=== PATIENT | male | born 1965 | race Caucasian/White ===

== ENCOUNTER 2021-12-13 10:57 | Emergency (ER) | payer OTHER, SELFPAY ==
--- NOTE | ~2021-12-13 | XR_ITS ---
EXAMINATION: XR finger 1st RT min 2V DATE: 12/13/2021 11:09 INDICATION: Right thumb laceration. TECHNIQUE: 3 views of right thumb were obtained. COMPARISON: Right hand radiographs 06/14/2006 FINDINGS: Bone alignment is normal. No fracture. There is moderate osteoarthritis of first carpometac arpal joint and mild osteoarthritis of first metacarpophalangeal joint and first interphalangeal join t. No radiopaque foreign body. IMPRESSION: 1. Polyarticular osteoarthritis. Reviewed, dictated and finalized at location A.
[2021-12-13 11:00] VITALS: BP 173/89; PULSE 79; RESP 20; O2SAT 94
--- NOTE | 2021-12-13 11:35 | ED.WOUNDLAC ---
HPI - Wound/Laceration General Chief Complaint: Wound/Laceration Stated Complaint: thumb lac Time Seen by Provider: 12/13/21 11:09 History of Present Illness HPI narrative: 56-year-old male presents the emergency room for evaluation of a laceration to the right thumb. Patient states that he was moving snowplow in his garage yesterday afternoon when he cut his thumb on the blade. Patient denies any difficulty moving his thumb around. Tetanus is not up-to-date. Related Data Allergies Allergy/AdvReac Type Severity Reaction Status Date / Time pollen extracts Allergy Unknown Unknown Verified 12/13/21 10:57 Review of Systems Review of Systems: CONSTITUTIONAL: Denies fever, chills, or sweats. EYES: Denies visual changes, redness, or discharge. ENT: Denies rhinorrhea, congestion, sore throat, or otalgia. CARDIOVASCULAR: Denies chest pain, palpitations, or edema. RESPIRATORY: Denies cough or dyspnea. GASTROINTESTINAL: Denies abdominal pain, nausea, vomiting, or diarrhea. GENITOURINARY: Denies dysuria or hematuria. SKIN: Laceration right thumb MUSCULOSKELETAL: Denies back pain, joint pain, or myalgia. NEUROLOGIC: Denies headache, numbness, dizziness, or weakness. PSYCHIATRIC: Denies anxiety or depression. [facility] Family History Family History Other Family history of lung cancer Family history of malignant neoplasm of brain Social History Social History Smoking status: Heavy tobacco smoker Alcohol intake: current Substance use: never Substance use type: does not use Gender identity (if verbalized by the patient): Female Exam Narrative: GENERAL: Well-appearing, well-nourished, and in no acute distress. HEAD: Normocephalic, atraumatic. EYES: PERRLA and EOMI. CHEST: Clear to auscultation. No respiratory distress. No wheezes rales or rhonchi HEART: Regular rate and rhythm. No murmur heard. Normal peripheral pulses. ABDOMEN: Soft, nontender, nondistended, normal active bowel sounds. EXTREMITIES: Normal range of motion. No edema. SKIN: Right thumb: 3 cm stellate shaped laceration to the palmar side of the right thumb; range of motion of the MCP and IP joints, no joint laxity, neurovascular is intact distally NEURO: No focal deficits. Alert and oriented x3. PSYCH: Normal mood and affect. Course Vital Signs Vital signs: Vital Signs Pulse Rate 79 12/13/21 11:00 Respiratory Rate 20 12/13/21 11:00 Blood Pressure 173/89 H 12/13/21 11:00 Pulse Oximetry 94 12/13/21 11:00 Pulse Rate 79 12/13/21 11:00 Respiratory Rate 20 12/13/21 11:00 Blood Pressure 173/89 H 12/13/21 11:00 Pulse Oximetry 94 12/13/21 11:00 Discharge Plan Discharge Clinical Impression: Laceration of right thumb Patient Disposition: Home, Self-Care Condition: Stable Instructions: Antibiotic Form, Laceration (ED) Prescriptions: New cephalexin 500 mg capsule 500 mg PO Q8H 7 Days Qty: 21 0RF No Action diclofenac sodium 75 mg tablet,delayed release (DR/EC) 75 mg PO BID PRN (Reason: pain) Qty: 60 0RF allopurinol 100 mg tablet 100 mg PO DAILY Qty: 30 2RF prednisone 10 mg tablet 30 mg PO DAILY Qty: 15 0RF benzonatate 100 mg capsule 100 mg PO TID PRN (Reason: cough) Qty: 30 0RF Follow-up/Referrals: Florentino Marquis MD [Primary Care Provider] - Time of Disposition: 11:38
[2021-12-13] MEDS: TETANUS,DIPHTHERIA,AC PERTUSSIS ADULT (0.5 ML) BOOSTRIX IM (11:43)
== END 2021-12-13 11:56 | disposition home or self-care (01) ==
PROVIDERS: Emergency Provider Nurse Practitioner Family; PCP Family Medicine
DX: S61.011A Laceration without foreign body of right thumb without damage to nail, initial encounter (principal); Z23 Encounter for immunization; F17.200 Nicotine dependence, unspecified, uncomplicated; M19.041 Primary osteoarthritis, right hand; W26.8XXA Contact with other sharp object(s), not elsewhere classified, initial encounter
CPT/HCPCS: 73140; 90471; 90715; 99283

== ENCOUNTER 2023-11-13 13:15 | Outpatient (RCR) | payer OTHER, SELFPAY ==
--- NOTE | 2023-10-29 15:26 | OPREHPOC ---
Outpatient Therapy Plan of Care This is a Multidisciplinary Plan of Care that may contain components documented by all disciplines (PT, OT, and ST.) PT Problem 1 PT Problem #1 Knowledge Deficit PT Goal 1 Goal *indep with HEP * good body positioning with exercises Target Visit 8 PT Problem 2 PT Problem #2 Pain PT Goal 1 Goal 1* worst pain rating of 4/10 2* radicular pain to knee at worst 3* self assessment Oswestry rating of 10% limitation Target Visit 8 PT Problem 3 PT Problem #3 Impaired Flexibility PT Goal 1 Goal increase hip and trunk flexibility to decrease muscle imbalance 1* supine SLR L 55' 2* supine SLR R 60' 3* supine L piriformis stretch without pain Target Visit 8 PT Problem 4 PT Problem #4 Impaired Strength PT Goal 1 Goal 1* single leg standing L x 20 sec with good stability 2* pt report no issues with L foot dragging with walking Target Visit 8
--- NOTE | 2023-10-29 15:26 | PTOPEVAL1 ---
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 Reported Pain Level Pain Score Self Report Additional Pain Score Comments pain range in the past week 4-8/10; constant into L LE, to foot at worse;L lateral hip; increase pain: walking/on feet 10 min; when wake up in AM; put on shoes, lie on L side; decrease pain: over counter pain patch; hot shower took gabapentin few times- not tell difference; no over the counter meds- do not like to take meds is not a good sleeper in general Assessment PT Clinical Summary Simone has the diagnosis of back pain, radicular into L LE to foot. He works walking through a plant delivering mail, and at times, his L foot drags. Self assessment Oswestry rating of 22% limitation in activity level. With the evaluation: standing trunk flexion and supine hamstring stretch increase pain; he has tightness of both hamstrings, L tighter than R; poor posture with rounding of shoulders and thoracic spine. Skilled PT services are indicated for modalities to decrease pain; therapeutic exercises to increase flexibility of hips and increase strength of trunk, with education for HEP and posture correction. Plan of Care Interventions Electrical Stimulation,Hot Pack/Cold Pack,Manual Therapy,Mechanical Traction,Neuro Re-education, Patient/Caregiver Education,Therapeutic Activities, Therapeutic Exercise,Ultrasound,Other Other Interventions IASTM, taping PT Services Indicated Yes Treatment Frequency and 2x/wk for 8 visit total Duration These treatments will address the objective and functional deficits as defined above. The patient will be advanced safely and appropriately in order for the david
--- NOTE | 2023-12-17 11:45 | PTOPDC ---
Assessment and note entered by Sarah Gustafson, PT Discharge Report Assessment Status Discharge - Pt Not Present Diagnosis low back pain Onset May 2023 Subjective Information pt was not seen this date. Assessment PT Clinical Summary Simone has received 3 PT sessions, from October 28 to November 12. He then stopped attending therapy. Discharge PT. The goals were not addressed. Plan of Care PT Services Indicated No
== END 2023-12-17 13:34 | disposition home or self-care (01) ==
LOC: ANHPT 13:15
PROVIDERS: PCP Family Medicine; Visit Provider Nurse Practitioner Family
DX: M54.32 Sciatica, left side (principal)
CPT/HCPCS: 97014; 97110; 97140; 97161; 97530; G0283

== ENCOUNTER 2023-11-23 10:28 | Outpatient (CLI) | payer OTHER, SELFPAY ==
--- NOTE | ~2023-11-23 | XR_ITS ---
EXAMINATION: XR lumbar spine 2-3V DATE: 11/23/2023 10:57 INDICATION: Left-sided sciatica. TECHNIQUE: 3 views of lumbar spine were obtained. COMPARISON: None. FINDINGS: There is 4 degrees levocurvature of thoracolumbar spine. There is 3 mm retrolisthesis of L2 on L3 and L3 on L4. Vertebral body heights are normal. There is mildly decreased disc height at L2-L 3 and L3-L4. There is multilevel facet joint osteoarthritis, severe in lower lumbar spine. IMPRESSION: 1. Mild lumbar spondylosis. Reviewed, dictated and finalized at location A. IMPRESSION: 1. Mild lumbar spondylosis.
== END 2023-11-23 10:29 ==
LOC: MICIMG 10:30
PROVIDERS: PCP Family Medicine; Visit Provider Nurse Practitioner Adult Health
DX: M54.42 Lumbago with sciatica, left side (principal); M43.06 Spondylolysis, lumbar region
CPT/HCPCS: 72100

== ENCOUNTER 2023-12-18 12:38 | Outpatient (CLI) | payer OTHER, SELFPAY ==
--- NOTE | 2023-12-18 14:15 | NEURO_ITS ---
Impression: # Complains of left lower extremity radiating pain. # Normal motor/sensory Nerve Conduction Study including F-waves. # Normal needle/EMG exam. # Clinical correlation recommended. Nerve Conduction Studies Anti Sensory Summary Table Stim Site NR Peak (ms) P-T Amp (?V) Site1 Site2 Delta-P (ms) Dist (cm) Robert (m/s) Left Sup Fibular Anti Sensory (Ant Lat Mall) 14 cm 3.2 9.5 14 cm Ant Lat Mall 3.2 16.0 50 Right Sup Fibular Anti Sensory (Ant Lat Mall) 14 cm 3.4 15.9 14 cm Ant Lat Mall 3.4 16.0 47 Left Sural Anti Sensory (Lat Mall) Calf 3.8 4.1 Calf Lat Mall 3.8 16.0 42 Right Sural Anti Sensory (Lat Mall) Calf 3.6 6.4 Calf Lat Mall 3.6 16.0 44 Motor Summary Table Stim Site NR Onset (ms) O-P Amp (mV) Site1 Site2 Delta-0 (ms) Dist (cm) Robert (m/s) Left Peroneal Motor (Vastus Med) Ankle 3.8 4.9 Popit Ankle 9.2 44.0 48 Popit 13.0 3.0 Right Peroneal Motor (Vastus Med) Ankle 3.4 3.0 Popit Ankle 8.2 39.0 48 Popit 11.6 2.5 Left Tibial Motor (Abd Gutiérrez Brev) Ankle 4.1 1.2 Knee Ankle 8.3 40.0 48 Knee 12.4 1.1 Right Tibial Motor (Abd Gutiérrez Brev) Ankle 3.8 3.0 Knee Ankle 8.9 43.0 48 Knee 12.7 2.0 F Wave Studies NR F-Lat (ms) L-R F-Lat (ms) Left Peroneal (Mrkrs) (EDB) 49.11 0.58 Right Peroneal (Mrkrs) (EDB) 49.69 0.58 Left Tibial (Mrkrs) (Abd Hallucis) 51.94 0.80 Right Tibial (Mrkrs) (Abd Hallucis) 51.14 0.80 EMG Side Muscle Nerve Root Ins Act Fibs Amp Dur Recrt Comment Right AntTibialis Dp Br Fibular L4-5 Nml Nml Nml Nml Nml Right Gastroc Tibial S1-2 Nml Nml Nml Nml Nml Right Fibularis Long Sup Br Fibular L5-S1 Nml Nml Nml Nml Nml Right Flex Dig Long Tibial L5-S2 Nml Nml Nml Nml Nml Right Ext Dig Brev Dp Br Fibular L5, S1 Nml Nml Nml Nml Nml Left AntTibialis Dp Br Fibular L4-5 Nml Nml Nml Nml Nml Left Gastroc Tibial S1-2 Nml Nml Nml Nml Nml Left Fibularis Long Sup Br Fibular L5-S1 Nml Nml Nml Nml Nml Left Flex Dig Long Tibial L5-S2 Nml Nml Nml Nml Nml Left Ext Dig Brev Dp Br Fibular L5, S1 Nml Nml Nml Nml Nml MTDD
== END 2023-12-18 12:39 | disposition home or self-care (01) ==
PROVIDERS: PCP Family Medicine; Visit Provider Nurse Practitioner Adult Health
DX: M54.32 Sciatica, left side (principal)
CPT/HCPCS: 95886; 95910